=== PATIENT | male | born 1955 | race Caucasian/White ===

== ENCOUNTER 2019-11-09 15:20 | Outpatient (CLI) | payer OTHER | END 2019-11-09 23:59 | disposition critical access hospital (66) | LOC: EMS 15:20 | PROVIDERS: ATTEND Surgery | DX: R51 Headache (principal); R20.0 Anesthesia of skin | CPT/HCPCS: A0425; A0427 ==

== ENCOUNTER 2019-11-09 15:51 | Emergency (ER) | payer BC, OTHER ==
[2019-11-09 17:30] LABS: BASOPHILS % (AUTO) 0.5 %; EOSINOPHILS # (AUTO) 0.2 10^3/uL (0.0-0.7); EOSINOPHILS % (AUTO) 2.3 %; HGB - HEMOGLOBIN 14.6 g/dL (14.0-18.0); LYMPHOCYTES # (AUTO) 2.2 10^3/uL (1.5-3.5); MEAN CORPUSCULAR HEMOGLOBIN 31.5 pg (27.0-31.0); MEAN CORPUSCULAR HGB CONC 34.4 g/dL (32.0-36.0); MEAN CORPUSCULAR VOLUME 91.6 fL (80.0-94.0); MEAN PLATELET VOLUME 10.9 fL (7.4-11.4); MONOCYTES # (AUTO) 0.5 10^3/uL (0.0-1.0); MONOCYTES % (AUTO) 5.9 %; NEUTROPHILS # (AUTO) 5.2 10^3/uL (1.5-6.6); NEUTROPHILS % (AUTO) 63.9 %; PLT - PLATELET COUNT 243 10^3/uL (130-450); RED BLOOD COUNT 4.63 10^6/uL (4.70-6.10); RED CELL DISTRIBUTION WIDTH 12.4 % (12.0-15.0); WHITE BLOOD COUNT 8.2 x10^3/uL (4.8-10.8)
[2019-11-09 17:42] LABS: ALBUMIN 4.4 g/dL (3.2-5.5); ALBUMIN/GLOBULIN RATIO 1.6 (1.0-2.2); BILIRUBIN,TOTAL 0.7 mg/dL (0.2-1.0); CALCIUM 9.5 mg/dL (8.5-10.3); TOTAL PROTEIN 7.2 g/dL (6.7-8.2)
--- NOTE | 2019-11-09 17:42 | ED Physician Documentation ---
History of Present Illness - Stated complaint Stated Complaint: SHETTY - Chief complaint Chief Complaint: Neuro - History obtained from History obtained from: Patient - Additonal information Additional information: 64-year-old male presents to the emergency department for evaluation of 2 weeks left temporal headache. He reports that the headache has been constant in nature but over the last 2 days the skin in the area overlying the faith has become numb. He has had no fevers no cough or dyspnea. He denies slurred speech focal arm or leg weakness. He has had no vision changes or diplopia. Patient denies any history of high blood pressure or diabetes. He takes no prescribed medications. He works as a maintenance department technician. He denies tobacco use. He is a social drinker and occasionally eats cannabis edibles. Review of Systems Constitutional: denies: Fever, Chills Eyes: denies: Loss of vision, Decreased vision, Photophobia, Irritation Ears: denies: Loss of hearing, Ear pain Nose: denies: Rhinorrhea / runny nose Throat: denies: Dental pain / toothache Cardiac: denies: Chest pain / pressure, Palpitations Respiratory: denies: Dyspnea, Hemoptysis, Wheezing GI: denies: Abdominal Pain, Abdominal Swelling, Nausea, Vomiting, Diarrhea : denies: Dysuria, Frequency, Hesitancy Skin: denies: Rash, Lesions, Abrasion (s) Musculoskeletal: denies: Neck pain, Back pain Neurologic: reports: Headache. denies: Generalized weakness, Focal weakness, Numbness, Difficulty speaking, Near syncope, Syncope, Seizure, Confused, Altered mental status, Head injury, LOC PD PAST MEDICAL HISTORY - Past Medical History Past Medical History: Yes Cardiovascular: None Respiratory: Asthma Neuro: Headaches Endocrine/Autoimmune: None GI: None : None HEENT: Chronic sinusitis Psych: None Musculoskeletal: Chronic back pain Derm: None - Past Surgical History Past Surgical History: No - Present Medications Home Medications: Ambulatory Orders Medication Instructions Recorded Confirmed Ibuprofen [Motrin] 600 mg PO Q6H PRN #30 tab 11/09/19 - Allergies Allergies/Adverse Reactions: Allergies Allergy/AdvReac Type Severity Reaction Status Date / Time No Known Drug Allergies Allergy Verified 11/09/19 16:00 - Social History Does the pt smoke?: Yes Smoking Status: Former smoker Does the pt drink ETOH?: Yes ETOH Use: Liquor Does the pt have substance abuse?: Yes Substance Use and Type: Marijuana - Immunizations Immunizations are current?: Yes - POLST Patient has POLST: No PD ED PE NORMAL - General General: Alert and oriented X 3, No acute distress, Well developed/nourished - HEENT HEENT: PERRL, EOMI - Neck Neck: Supple, no meningeal sign, No bony TTP, No adenopathy - Cardiac Cardiac: RRR, No murmur - Respiratory Respiratory: No respiratory distress - Abdomen Abdomen: Normal bowel sounds, Soft - Back Back: No CVA TTP, No spinal TTP - Derm Derm: Normal color - Extremities Extremities: No deformity, No tenderness to palpate - Neuro Neuro: Alert and oriented X 3, 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 No overlying erythema or ecchymosis. No skin lesions) Eye Opening: Spontaneous Motor: Obeys Commands Verbal: Oriented GCS Score: 15 - Psych Psych: Normal mood, Other (Patient reports some feelings of depression but no suicidal or homicidal ideation. He has no auditory or visual hallucinations. He is alert calm oriented and very cooperative with this provider. He makes very good eye contact.) Results - Vitals Vitals: Vital Signs - 24 hr 11/09/19 11/09/19 16:01 16:12 Temperature 37.2 C Heart Rate 84 80 Respiratory 14 12 Rate Blood Pressure 107/86 H 146/98 H O2 Saturation 100 100 Oxygen O2 Source Room air - Labs Labs: Laboratory Tests 11/09/19 11/09/19 11/09/19 17:23 17:23 17:23 WBC 8.2 RBC 4.63 L Hgb 14.6 Hct 42.4 MCV 91.6 MCH 31.5 H MCHC 34.4 RDW 12.4 Plt Count 243 MPV 10.9 Neut # (Auto) 5.2 Lymph # (Auto) 2.2 [place] # (Auto) 0.5 Eos # (Auto) 0.2 Baso # (Auto) 0.0 Absolute Nucleated RBC 0.00 Nucleated RBC % 0.0 ESR 2 Sodium 139 Potassium 3.7 Chloride 101 Carbon Dioxide 26 Anion Gap 12.0 BUN 13 Creatinine 1.0 Estimated GFR (MDRD) 75 L Glucose 98 Calcium 9.5 Total Bilirubin 0.7 AST 16 ALT 15 Alkaline Phosphatase 59 C-Reactive Protein Total Protein 7.2 Albumin 4.4 Globulin 2.8 Albumin/Globulin Ratio 1.6 Lipase 36 11/09/19 17:23 WBC RBC Hgb Hct MCV MCH MCHC RDW Plt Count MPV Neut # (Auto) Lymph # (Auto) [place] # (Auto) Eos # (Auto) Baso # (Auto) Absolute Nucleated RBC Nucleated RBC % ESR Sodium Potassium Chloride Carbon Dioxide Anion Gap BUN Creatinine Estimated GFR (MDRD) Glucose Calcium Total Bilirubin AST ALT Alkaline Phosphatase C-Reactive Protein < 1.0 Total Protein Albumin Globulin Albumin/Globulin Ratio Lipase - Rads (name of study) CT head Radiology: Final report received (No CT evidence of acute intracranial pathology. Postsurgical changes in the lateral right orbital wall. Mild bilateral ethmoid sinusitis.) PD MEDICAL DECISION MAKING - ED course Complexity details: reviewed results, re-evaluated patient, considered differential, d/w patient ED course: 64-year-old male presents to the emergency department for evaluation of 2 weeks of left-sided temporal headache. He has had no vision changes fevers any focal neuro deficits. Given his age and the location of the pain there was concerned that the differential may include a temporal arteritis. His sedimentation rate and CRP were normal without any. He had no leukocytosis and his screening labs were otherwise. The likelihood of giant cell arteritis is less likely giving the normal CRP and sedimentation rate. we did proceed with a head CT that showed no acute intracranial abnormality specifically no tumor mass bleed or shift. I discussed the ED findings with the patient at this time he denies that he has a headache. He thinks that it may be stemming from a stress at work. I have advised close follow-up with his primary care doctor for further evaluation Departure - Departure Disposition: 01 Home, Self Care Clinical Impression: Headache Qualifiers: Headache type: unspecified Headache chronicity pattern: acute headache Intractability: not intractable Qualified Code(s): R51 - Headache Condition: Stable Record reviewed to determine appropriate education?: Yes Instructions: ED Cephalgia Unspecified Prescriptions: Ibuprofen [Motrin] 600 mg PO Q6H PRN #30 tab PRN Reason: Pain Comments: Usman the CT of your head did not show any worrisome findings. Because of the location of your headache we did check to labs called a sedimentation rate and a CRP. They were both normal. I would like you to discuss this emergency department visit with your primary care doctors at the [facility]. If you find that your headache returns and is suddenly severe, you have uncontrolled vomiting any vision changes or fevers then please return to the emergency department for a second look
--- NOTE | 2019-11-09 18:32 | CT Report ---
PROCEDURE: HEAD WO INDICATIONS: daily headaches for 2 weeks TECHNIQUE: Noncontrast 4.5 mm thick angled axial sections acquired from the foramen magnum to the vertex. For r adiation dose reduction, the following was used: automated exposure control, adjustment of mA and/or kV according to patient size. COMPARISON: None. FINDINGS: Image quality: Excellent. CSF spaces: Basal cisterns are patent. No extra-axial fluid collections. Ventricles are normal in size and shape. Brain: No midline shift. No intracranial masses or hemorrhage. Kerr-white matter interface is norm al. Skull and face: No acute abnormality is seen in calvarium and bilateral facial bones. Prior fixation of right lateral orbital wall is seen. Sinuses: Mild mucosal thickening in bilateral ethmoid sinuses are seen. IMPRESSION: 1. No CT evidence of acute intracranial pathology. 2. Postsurgical changes in lateral right orbital wall. Mild bilateral ethmoid sinusitis. Reviewed by: Shakeel Jules MD on 11/09/2019 6:31 PM PDT Approved by: Shakeel Jules MD on 11/09/2019 6:31 PM PDT Station ID: [id number]
[2019-11-09 19:21] VITALS: BP 139/103
== END 2019-11-09 19:29 | disposition home or self-care (01) ==
LOC: EDUNIT# → ED 15:51
DX: R51 Headache (principal); J32.2 Chronic ethmoidal sinusitis; Z87.891 Personal history of nicotine dependence
CPT/HCPCS: 36415; 70450; 80053; 83690; 85025; 85651; 86140; 99284

== ENCOUNTER 2022-07-09 08:00 | Outpatient (CLI) | payer MEDICARE, OTHER ==
[2022-07-09 19:43] LABS: BILIRUBIN,URINE NEGATIVE (NEGATIVE); GLUCOSE, URINE (UA) NEGATIVE (NEGATIVE); KETONES,URINE (UA) NEGATIVE (NEGATIVE); LEUKOCYTE ESTERASE, URINE LARGE (NEGATIVE); NITRITE,URINE NEGATIVE (NEGATIVE); OCCULT BLOOD,URINE LARGE (NEGATIVE); PH,URINE 5.5 PH (5.0-7.5); PROTEIN,URINE 100 mg/dL (NEGATIVE); UROBILINOGEN,URINE 0.2 (NORMAL) E.U./dL (NORMAL)
[2022-07-09 19:51] LABS: CLARITY,URINE CLOUDY (CLEAR)
[2022-07-09 20:11] LABS: BACTERIA,URINE Many /HPF (None Seen); RBC,URINE TNTC /HPF (0-5); SQUAMOUS EPITHELIAL CELL,UR NONE SEEN (<= Few); WBC,URINE >25 /HPF (0-3)
== END 2022-07-09 23:59 | disposition home or self-care (01) ==
LOC: LAB 08:00
PROVIDERS: ATTEND Emergency Medicine
DX: N41.0 Acute prostatitis (principal); R31.9 Hematuria, unspecified
CPT/HCPCS: 81001; 87086; 87181

== ENCOUNTER 2022-07-22 09:41 | Outpatient (CLI) | payer MEDICARE ==
[2022-07-22 15:36] LABS: BASOPHILS % (AUTO) 0.4 %; EOSINOPHILS # (AUTO) 0.1 10^3/uL (0.0-0.7); EOSINOPHILS % (AUTO) 1.1 %; HCT - HEMATOCRIT 40.2 % (42.0-52.0); HGB - HEMOGLOBIN 12.7 g/dL (14.0-18.0); LYMPHOCYTES # (AUTO) 2.2 10^3/uL (1.5-3.5); LYMPHOCYTES % (AUTO) 22.8 %; MEAN CORPUSCULAR HEMOGLOBIN 29.7 pg (27.0-31.0); MEAN CORPUSCULAR HGB CONC 31.6 g/dL (32.0-36.0); MEAN CORPUSCULAR VOLUME 94.1 fL (80.0-94.0); MEAN PLATELET VOLUME 10.1 fL (7.4-11.4); MONOCYTES # (AUTO) 0.5 10^3/uL (0.0-1.0); MONOCYTES % (AUTO) 5.5 %; NEUTROPHILS # (AUTO) 6.6 10^3/uL (1.5-6.6); NEUTROPHILS % (AUTO) 69.9 %; PLT - PLATELET COUNT 474 10^3/uL (130-450); RED BLOOD COUNT 4.27 10^6/uL (4.70-6.10); RED CELL DISTRIBUTION WIDTH 12.7 % (12.0-15.0); WHITE BLOOD COUNT 9.4 x10^3/uL (4.8-10.8)
[2022-07-22 16:55] LABS: CALCIUM 9.1 mg/dL (8.5-10.3); CREATININE 1.1 mg/dL (0.6-1.2); POTASSIUM 4.3 mmol/L (3.5-5.0)
== END 2022-07-22 09:42 | disposition home or self-care (01) ==
LOC: LAB.S 09:41
PROVIDERS: ATTEND Emergency Medicine
DX: N41.0 Acute prostatitis (principal); R31.9 Hematuria, unspecified
CPT/HCPCS: 36415; 80048; 84153; 85025

== ENCOUNTER 2022-08-05 11:17 | Outpatient (CLI) | payer MEDICARE ==
[2022-08-05 14:38] LABS: BILIRUBIN,URINE NEGATIVE (NEGATIVE); GLUCOSE, URINE (UA) NEGATIVE (NEGATIVE); KETONES,URINE (UA) NEGATIVE (NEGATIVE); LEUKOCYTE ESTERASE, URINE NEGATIVE (NEGATIVE); NITRITE,URINE NEGATIVE (NEGATIVE); OCCULT BLOOD,URINE NEGATIVE (NEGATIVE); PROTEIN,URINE NEGATIVE (NEGATIVE); UROBILINOGEN,URINE 0.2 (NORMAL) E.U./dL (NORMAL)
[2022-08-05 14:45] LABS: BACTERIA,URINE None Seen /HPF (None Seen); CLARITY,URINE CLEAR (CLEAR); RBC,URINE None Seen /HPF (0-5); SQUAMOUS EPITHELIAL CELL,UR NONE SEEN (<= Few); WBC,URINE 0-3 /HPF (0-3)
== END 2022-08-05 11:18 | disposition home or self-care (01) ==
LOC: LAB.S 11:17
PROVIDERS: ATTEND Emergency Medicine
DX: N41.0 Acute prostatitis (principal); R31.9 Hematuria, unspecified
CPT/HCPCS: 36415; 81001; 84153; 87086

== ENCOUNTER 2022-08-29 08:00 | Outpatient (CLI) | payer MEDICARE ==
[2022-08-29 20:11] LABS: BILIRUBIN,URINE NEGATIVE (NEGATIVE); GLUCOSE, URINE (UA) NEGATIVE (NEGATIVE); KETONES,URINE (UA) NEGATIVE (NEGATIVE); LEUKOCYTE ESTERASE, URINE NEGATIVE (NEGATIVE); NITRITE,URINE NEGATIVE (NEGATIVE); OCCULT BLOOD,URINE NEGATIVE (NEGATIVE); PH,URINE 6.5 PH (5.0-7.5); PROTEIN,URINE NEGATIVE (NEGATIVE); UROBILINOGEN,URINE 0.2 (NORMAL) E.U./dL (NORMAL)
[2022-08-29 20:13] LABS: CLARITY,URINE CLEAR (CLEAR)
[2022-08-29 20:26] LABS: BACTERIA,URINE None Seen /HPF (None Seen); RBC,URINE 0-5 /HPF (0-5); SQUAMOUS EPITHELIAL CELL,UR NONE SEEN (<= Few); WBC,URINE 0-3 /HPF (0-3)
== END 2022-08-29 23:59 | disposition home or self-care (01) ==
LOC: LAB.S 08:00
PROVIDERS: ATTEND Emergency Medicine
DX: R31.9 Hematuria, unspecified (principal)
CPT/HCPCS: 81001; 87086